=== PATIENT | male | born 1975 | race Caucasian/White ===

== ENCOUNTER 2022-03-11 15:40 | Emergency (ER) | payer SELFPAY ==
[~2022-03-11] VITALS: Ht 172.7 cm; Wt 75.0 kg
[2022-03-11 22:32] LABS: BASOPHILS % 0.1 % (0.0-2.0); EOSINOPHILS % 0.3 % (0.0-5.0); HEMATOCRIT. 44.4 % (42.0-52.0); HEMOGLOBIN. 15.3 g/dL (14.0-18.0); LYMPHOCYTES % 10.8 % (20.0-50.0); MEAN CORPUSCULAR VOLUME 90.1 fL (80.0-94.0); MONOCYTES % 9.7 % (2.0-8.0); NEUTROPHILS % 79.1 % (40.0-76.0); PLATELET 170 x1000/uL (130-400); RED BLOOD CELL COUNT 4.93 mill/uL (4.7-6.1); RED CELL DISTRIBUTION WIDTH 13.7 % (11.6-14.6)
[2022-03-11 22:37] LABS: CHLORIDE 103 mEq/L (98-107)
[2022-03-11 22:44] LABS: ETHANOL BLOOD < 10 mg/dL
[2022-03-12] MEDS ORDERED: IOHEXOL-350 100 ML BOTTLE ONE (01:48)
[2022-03-12] MEDS ORDERED: ENOXAPARIN 80MG/0.8ML SYR SUBCUT ONE (02:15)
[2022-03-12] MEDS ORDERED: PIPERACILLIN/TAZ 3.375G PREMIX 50 ML IV ONE (03:00)
[2022-03-12] MEDS ORDERED: ENOXAPARIN 80MG/0.8ML SYR SUBCUT NR (04:30)
[2022-03-12] MEDS ORDERED: MORPHINE SULFATE 4 MG/ML CPJ (NOT FOR IM USE) IV ONE ×3 (09:15→17:45)
[2022-03-12 10:02] LABS: *AMPHETAMINES SCREEN URINE NEGATIVE (NEGATIVE); *BARBITURATES SCREEN URINE NEGATIVE (NEGATIVE); *BENZODIAZEPINES SCREEN URINE NEGATIVE (NEGATIVE); *COCAINE SCREEN URINE NEGATIVE (NEGATIVE); CANNABINOID URINE SCREEN PRESUMTIVE POSITIVE (NEGATIVE); METHADONE URINE SCREEN NEGATIVE (NEGATIVE); OPIATES URINE SCREEN NEGATIVE (NEGATIVE); PHENCYCLIDINE URINE SCREEN NEGATIVE (NEGATIVE)
[2022-03-12] MEDS ORDERED: MORPHINE SULFATE 4 MG/ML CPJ (NOT FOR IM USE) IV NR (12:45)
[2022-03-13] MEDS ORDERED: MORPHINE SULFATE 4 MG/ML CPJ (NOT FOR IM USE) IV NR (00:15)
[2022-03-13 06:05] VITALS: BP 169/99
[2022-03-13] MEDS ORDERED: ENOXAPARIN 60MG/0.6ML SYR SUBCUT ONE (09:00)
== END 2022-03-13 06:19 | disposition home or self-care (01) ==
LOC: ER 15:40
DX: I70.298 Other atherosclerosis of native arteries of extremities, other extremity (principal); F15.90 Other stimulant use, unspecified, uncomplicated
CPT/HCPCS: 36415; 80053; 80305; 80320; 83605; 85025; 87040; 99291; J1650; J2270; J2543; Q9967; G0480